=== PATIENT | male | born 1935 | race Hispanic/Latino ===

== ENCOUNTER 2018-02-19 12:58 | Inpatient (IN) | payer MEDICARE ==
[~2018-02-19 12:58] MED LIST: ISOVUE-370 76%-LOCM 1 ML ONE
[2018-02-19 13:39] LABS: #Lymphocytes 0.8 thou/uL (1.20-3.40); #Monocytes 1.3 thou/uL (0.11-0.59); #Neutrophils 10.6 thou/uL (1.40-6.50); %Eosinophils 0.3 % (0.0-10.0); %Lymphocytes 6.4 % (21.0-51.0); %Monocytes 10.3 % (0.0-10.0); %Neutrophils 82.9 % (42.0-75.0); Mean Corpuscular HGB CONC 30.8 g/dL (32.0-36.0); Mean Corpuscular Hemoglobin 25.2 pg (27.0-31.0); Mean Platelet Volume 6.5 fL (7.4-10.4); Platelet Count 429 thou/uL (130-400); RBC Distribution Width 15.4 % (11.5-14.5); Red Blood Cell (RBC) Count 4.75 mill/uL (4.70-6.10); White Blood Cell (WBC) Count 12.7 thou/uL (4.8-10.8)
[2018-02-19 14:03] LABS: ALT (SGPT) 15 U/L (8-55); AST (SGOT) 31 U/L (5-34); Albumin 5.2 g/dL (3.4-4.8); Alkaline Phosphatase 63 U/L (40-150); Anion Gap 16 mmol/L (10-20); BUN (Urea Nitrogen) 17 mg/dL (8.4-25.7); Bilirubin, Total 0.4 mg/dL (0.2-1.2); Calc. Creatinine Clearance 0 mL/min (70-130); Calcium 10.4 mg/dL (7.8-10.44); Carbon Dioxide 25 mmol/L (23-31); Chloride 103 mmol/L (98-107); Estimated GFR-MDRD 55; Globulin 3.3 g/dL (2.4-3.5); Glucose 115 mg/dL (83-110); Potassium 3.5 mmol/L (3.5-5.1); Protein, Total 8.5 g/dL (5.8-8.1); Sodium 140 mmol/L (136-145)
[2018-02-19 14:07] LABS: CKMB 5.8 ng/mL (0-6.6); Troponin I 0.121 ng/mL (< 0.028)
--- NOTE | 2018-02-19 15:36 | CT ---
CONTRAST ENHANCED CT IMAGES OF THE ABDOMEN AND PELVIS: History: Abdominal pain. 82-year-old with multiple complaints including seizure, fall, abdominal pain , and vomiting. Technique: Contrast enhanced CT images of the abdomen and pelvis demonstrates an intracardiac defibri llator. A prosthetic aortic valve is seen. Coronary artery calcifications are seen. FINDINGS: Some areas of scarring seen in the left lower lobe. The liver contains a small area of hypodensity seen in the hepatic segment #8. Further workup using s onography may be of use. The gallbladder has been surgically removed. The pancreas is unremarkable. Adrenal glands unremarkable. Right kidney contains some hypodense areas most compatible with cortical cysts. There is approximatel y 4 mm area of hyperdensity in the upper pole of the left kidney most compatible with a nonobstructin g left renal calculus. Atherosclerotic calcification seen in the abdominal aorta. The adrenal glands are unremarkable. No dilated loops of small bowel seen. Normal appendix is visualized. Some mild diffuse ascending, transverse, and descending colonic mucosal thickening is seen concerning for colitis. Extensive descending sigmoid colonic diverticulosis is also present. Mild urinary bladder thickening is seen. Some fat is seen in the right inguinal canal. No significant evidence of osseous lesions seen. Some mucosal thickening seen in the colon concerning for colitis. POS: [facility]
--- NOTE | 2018-02-19 15:37 | CT ---
CT OF HEAD NONCONTRAST: 02/19/18 CLINICAL HISTORY: Seizure activity with recent fall. No prior comparison imaging. FINDINGS: There is a moderate sized region of left cerebral hemispheric encephalomalacia which is centered abou t the anterior pole left temporal lobe with associated ex vacuo dilatation of the left temporal horn. There is an additional smaller region of encephalomalacia of the left frontal lobe involving cortex and white matter. Subcortical hypodensities are present at each medial frontal lobe indicative of gli osis. There are hypodensities of the left cerebellar hemisphere indicating lacunar infarctions. Chron ic ischemic disease is also seen within the cerebral white matter. There is no intracranial hemorrhag e, mass effect or midline shift. IMPRESSION: Multifocal encephalomalacia superimposed upon chronic microvascular ischemic disease. There is no acu te intracranial hemorrhage or mass effect. As necessary, brain MRI may be performed, in the absence of contraindications. POS: [facility]
[2018-02-19] MEDS ORDERED: Dicyclomine 20 MG TAB ONE (15:56)
[2018-02-19] MEDS ORDERED: metroNIDAZOLE 500 MG/100 ML BAG ONE (16:06)
[2018-02-19 18:07] LABS: Troponin I 0.139 ng/mL (< 0.028)
[2018-02-19] MEDS ORDERED: Ondansetron ODT 4 MG TAB SL PRN (19:43)
[2018-02-19] MEDS ORDERED: Acetaminophen 325 MG TAB PO PRN (19:43)
[2018-02-19] MEDS ORDERED: Ondansetron PF 4 MG/2 ML Vial IVP PRN (19:43)
[2018-02-19 20:26] VITALS: BMI 25.7
[2018-02-19] MEDS ORDERED: Lorazepam 2 MG/ML VIAL SLOW IVP PRN (21:04)
[2018-02-19] MEDS ORDERED: cloNIDine 0.1 MG TAB PO PRN (21:04)
[2018-02-19 21:12] LABS: Troponin I 0.145 ng/mL (< 0.028)
[2018-02-19 21:40] LABS: Bilirubin Negative (Negative); Blood, Urine Negative (Negative); Clarity CLEAR (Clear); Glucose, Urine (Dipstick) Negative (Negative); Leukocyte Small (Negative); Nitrite Negative (Negative); Protein, Urine (Dipstick) Negative (Neg-Trace); Urobilinogen 0.2 mg/dL (0.2-1.0)
[2018-02-19 21:42] LABS: Bacteria/HPF None Seen HPF (None Seen); Hyaline Casts/LPF 4-6 HYALINE CAST LPF (0-3 Hyaline); Pathc Cast-AUWi Flag 0.87 (0-2.49); RBC/HPF 0-3 HPF (0-3); Squamous Epithelial 0-3 HPF (0-3); WBC/HPF 21-50 HPF (0-3)
[2018-02-19 21:44] LABS: Specific Gravity, Urine Greater than 1.060 (1.002-1.036)
--- NOTE | 2018-02-20 02:14 | HP ---
PRIMARY CARE PHYSICIAN: Dr. Bill Hood. DATE OF ADMISSION: 02/19/2018 CHIEF COMPLAINT: Seizure and abdominal pain. HISTORY OF PRESENT ILLNESS: This is an 82-year-old gentleman patient of Dr. 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 He has been followed by Dr. White and saw him recently a few months ago with no change in his medications. He has periodic seizures, but usually well controlled. Following the seizure, the patient complained of abdominal pain and presented to emergency department for further evaluation. He appeared not to be in a postictal state except for some confusion which may be his baseline. He continues to complain of lower abdominal pain. He had a CT of the abdomen done in the emergency department which did reveal some diverticulosis but no acute findings. He was started on Cipro and Flagyl in the emergency department for a possible diverticulitis, even though there are no clinical signs of diverticulitis. A CT of the brain was done due to the seizures and possible head injury which showed no acute changes except for chronic microvascular ischemic disease and multifocal encephalomalacia. Upon workup due to his history of heart disease, cardiac enzymes were done and they were found to be more elevated than his usual at 0.121 and 0.139. The patient denies chest pain, denies shortness of breath, denies palpitations. He is now being admitted for further evaluation and treatment. PAST MEDICAL HISTORY: 1. Systolic congestive heart failure with cardiomyopathy, known coronary disease, status post 4-vessel coronary bypass graft with aortic valve replacement at that time due to his cardiomyopathy and decreased left ventricular ejection fraction. He has had an AICD placement in the past. He has been followed by Dr. Cesar. 2. History of seizure disorder controlled on medicines. 3. Chronic kidney disease stage 2. 4. Hypertension. 5. Osteoarthritis. 6. Peripheral neuropathy. MEDICATIONS: Include gabapentin 600 mg in the morning and 300 mg at bedtime, Epitol 200 mg daily, Keppra 1000 mg twice a day, fenofibrate 135 mg daily, carvedilol 6.25 mg twice a day, atorvastatin 80 mg daily, aspirin 81 mg daily, Entresto 49/51 one twice a day, pantoprazole 40 mg daily for history of gastritis, fluoxetine 40 mg daily. ALLERGIES: No known drug allergies. PAST SURGICAL HISTORY: Four-vessel coronary bypass graft, AICD placement, aortic valve replacement. EGD showing severe gastritis in 2016. FAMILY HISTORY: Father and mother unknown. SOCIAL HISTORY: No smoking, no drug use. He is retired. REVIEW OF SYSTEMS: As per the history of present illness. General: He denies any recent fevers, chills or recent illness. HEENT: Denies headache, visual or hearing changes. Cardiac: Denies chest pain, shortness of breath or palpitations. Pulmonary: Denies cough or hemoptysis. Gastrointestinal: Denies nausea and vomiting. Admits to some lower abdominal pain. Genitourinary : History of urinary tract infections in the past. Musculoskeletal: Positive joint pains, worse in the knees and hands. Neurologic: Positive seizures. No recent syncope. PHYSICAL EXAMINATION: VITAL SIGNS: Temperature 99.0, pulse of 97, respirations 16, blood pressure 172 /82, pulse ox is 96% on room air. GENERAL: He is awake and alert and no acute distress. He speaks some Armenian, mostly prefers Kyrgyz. Mucosa is moist. NECK: Supple. No JVD, adenopathy, bruits. HEART: Regular rate and rhythm with a 2/6 systolic ejection murmur. LUNGS: Clear anteriorly. He does have some basilar rales which are mild. ABDOMEN: Soft, some suprapubic tenderness. No rebound, no guarding, no peritoneal signs. EXTREMITIES: No clubbing, cyanosis or edema, 2+ peripheral pulses bilaterally. NEUROLOGIC: Cranial nerves II-XII are intact. Strength is 5/5 in upper and lower extremities. LABORATORY DATA: Sodium 140, potassium 3.5, chloride 103, CO2 of 25, BUN and creatinine 15 and 1.27 with a GFR of 55, glucose of 115. Lactic acid was 2.0, calcium of 10.4. AST and ALT are normal. Troponin I first one was 0.121 and second one was 0.139. White blood cell count 12.7, hemoglobin and hematocrit are 12 and 38.9 with mild microcytic indices, platelets 429. CT of the brain revealed no multifocal encephalomalacia with chronic microvascular ischemic disease. No acute hemorrhage. Abdominal pelvic CT revealed some colitis in the colon, mild urinary bladder thickening, and evidence of diverticulosis. EKG with ST depression in anterolateral leads. ASSESSMENT AND PLAN: This is an 82-year-old patient of Dr. Hood with a history of cardiomyopathy, coronary artery disease, and seizure disorder, now status post seizure, complaining of abdominal pain, and abnormal cardiac enzymes. 1. CAD with elevated in cardiac enzymes after seizure. I agree with admission to Telemetry. We will continue to rule out myocardial infarction protocol. I will consult Cardiology and check echocardiogram for possible non Q wave myocardial infarction. We will recheck EKG in the morning. 2. Seizure disorder. We will continue his medications from Dr. White. Start Ativan p.r.n. seizure and put him on seizure precautions. 3. Possible urinary tract infection. I will place a Fuller for his difficulty urination and check UA, urine culture. [facility]
[2018-02-20 07:15] LABS: ALT (SGPT) 11 U/L (8-55); AST (SGOT) 26 U/L (5-34); Alkaline Phosphatase 46 U/L (40-150); Anion Gap 10 mmol/L (10-20); BUN (Urea Nitrogen) 17 mg/dL (8.4-25.7); Bilirubin, Total 0.5 mg/dL (0.2-1.2); Calc. Creatinine Clearance 52 mL/min (70-130); Calcium 9.3 mg/dL (7.8-10.44); Carbon Dioxide 25 mmol/L (23-31); Chloride 107 mmol/L (98-107); Estimated GFR-MDRD 64; Globulin 2.3 g/dL (2.4-3.5); Glucose 101 mg/dL (83-110); Potassium 4.3 mmol/L (3.5-5.1); Protein, Total 6.3 g/dL (5.8-8.1); Sodium 138 mmol/L (136-145)
--- NOTE | 2018-02-20 08:01 | PRG ---
DATE OF SERVICE: 02/20/2018 SUBJECTIVE: Mr. Christiano Patel is awake and alert. He denies any chest pain. He did notice some lo wer abdominal pain pointing toward his bladder. PHYSICAL EXAMINATION: VITAL SIGNS: Temperature 98.3, blood pressure 140/71. LUNGS: Clear. HEART: Reveals no murmur. ABDOMEN: Soft, nontender, bowel sounds present and reactive. LABORATORY DATA AND IMAGING: There was a mild elevation of his troponin at 0.145. Urinalysis does r eveal 21-50 WBCs per high power field. Abdominal and pelvic CT scan was normal. Brain CT is unchang ed from previous CTs. IMPRESSION: 1. An 82-year-old male who suffered from seizure. He has a history of recurrent seizure disorder. 2. Elevated troponins of unknown significance, previous history of cardiomyopathy. PLAN: Patient currently has a Fuller. We will discontinue the Fuller. We will place him on some oral antibiotics for presumed UTI. We will await Cardiology recommendations.
[2018-02-20 08:51] LABS: Band 2 % (5-11); Eosinophils 3 % (0-10); Hemoglobin 9.9 g/dL (14.0-18.0); Lymphocytes 23 % (21-51); MDiff Complete? YES; Mean Corpuscular HGB CONC 31.4 g/dL (32.0-36.0); Mean Corpuscular Hemoglobin 25.7 pg (27.0-31.0); Mean Corpuscular Volume 81.9 fL (78.0-98.0); Mean Platelet Volume 6.7 fL (7.4-10.4); Monocytes 20 % (0-10); Neutrophil 52 % (42-75); Platelet Count 351 thou/uL (130-400); Polychromasia SLIGHT = 2-3 cells (100X) (0-2/hpf); RBC Distribution Width 15.4 % (11.5-14.5); Red Blood Cell (RBC) Count 3.86 mill/uL (4.70-6.10); White Blood Cell (WBC) Count 7.4 thou/uL (4.8-10.8)
[2018-02-20] MEDS ORDERED: Non-Formulary Item 1 EACH (Fenofibric Acid (Choline) [Fenofibric Acid] 135 MG) PO SCH (09:00)
[2018-02-20] MEDS: Carvedilol 6.25 MG TAB PO SCH ×2 (10:41→20:43)
[2018-02-20] MEDS: Atorvastatin Calcium 40 MG TAB PO SCH (10:41)
[2018-02-20] MEDS: carBAMazepine 200 MG TAB PO SCH (10:41)
[2018-02-20] MEDS: Gabapentin 300 MG CAP PO SCH (10:42)
[2018-02-20] MEDS: levETIRAcetam 500 MG TAB PO SCH ×2 (10:42→20:44)
[2018-02-20] MEDS: Fenofibrate Nanocrystallized 145 MG TAB PO SCH (10:42)
[2018-02-20] MEDS: FLUoxetine HCl 20 MG CAP PO SCH (10:42)
[2018-02-20] MEDS: Sacubitril 49 MG/Valsartan 51 MG TABLET PO SCH ×2 (10:47→20:45)
--- NOTE | 2018-02-20 12:11 | CON ---
DATE OF CONSULTATION: 02/20/2018 HISTORY OF PRESENT ILLNESS: The patient is a pleasant 82-year-old gentleman, who presented with abdominal discomfort and a seizure and was noted to have an elevated troponin level. The patient has a long history of coronary artery disease. In 2010, he underwent a cardiac catheterization. He was found to have mild decreased left ventricular ejection fraction 40% to 45% with severe coronary artery disease. The patient subsequently underwent coronary artery bypass graft surgery and aortic valve replacement. He had a THOMPSON placed to the LAD, saphenous vein graft to the PDA, posterior left ventricular branch, and a diagonal branch. The patient has subsequently been on medical therapy. He has developed a progressive cardiomyopathy and has had placement of automatic implantable cardiac defibrillator. The patient was in his usual state of health when he apparently had a seizure. The patient reports having abdominal discomfort. He was admitted for further evaluation. The patient denied having any chest discomfort. The patient denies any dyspnea on exertion, PND, or orthopnea. PAST MEDICAL HISTORY: 1. Coronary artery disease. 2. Cardiomyopathy. 3. Hypertension. 4. Aortic valve replacement. 5. Renal insufficiency. 6. Seizure disorder. PAST SURGICAL HISTORY: Coronary artery bypass surgery and aortic valve replacement. SOCIAL HISTORY: Nonsmoker. MEDICATIONS: See nursing list. FAMILY HISTORY: No strong family history of heart disease. ALLERGIES: No known drug allergies. MEDICATIONS: Aspirin 81 daily, Lipitor 40 at bedtime, Coreg 6.25 b.i.d., Prozac 20 daily, Protonix 40 daily, Epitol 200 daily, TriCor 135 daily, gabapentin 300 at bedtime, and Protonix 40 daily. REVIEW OF SYSTEMS: Ten-point system noticeable for difficulty with urination. Otherwise, unremarkable. PHYSICAL EXAMINATION: GENERAL: a well-developed gentleman in no acute distress. VITAL SIGNS: Blood pressure was 180/75. NECK: Showed no jugular venous distention. LUNGS: Clear to auscultation. HEART: Regular rate and rhythm. Normal S1 and S2 with a 1/6 systolic murmur. ABDOMEN: Nondistended. EXTREMITIES: Show no edema. Radial pulses are 2+. LABORATORY DATA: Sodium 138, potassium 4.3, chloride 107, bicarbonate 25, BUN 17, creatinine is 1.11, troponin 0.0145. White blood cell count 7.4, hemoglobin 9.9, hematocrit 31.6, platelets are 351. His EKG reveals him to have normal sinus rhythm with left ventricular hypertrophy, ST-T-wave abnormality suggestive of a repolarization abnormality or ischemia. IMPRESSION: 1. Seizures. 2. Urinary retention/urinary tract infection. 3. History of coronary artery bypass surgery. 4. History of aortic valve replacement. 5. Ischemic cardiomyopathy. 6. History of automatic implantable cardioverter-defibrillator placement. This gentleman presents with a seizure and urinary tract infection. The patient has indeterminate troponin level. From a cardiac standpoint, the patient is asymptomatic. We will follow this patient with you through this hospitalization. NATALIE
[2018-02-20] MEDS: Ciprofloxacin 500 MG TAB PO SCH (20:43)
[2018-02-20] MEDS ORDERED: Gabapentin 300 MG CAP PO SCH (21:00)
[2018-02-21] MEDS: Ciprofloxacin 500 MG TAB PO SCH (05:49)
--- NOTE | 2018-02-21 07:47 | PRG ---
DATE OF SERVICE: 02/21/2018 SUBJECTIVE: Mr. Patel is feeling well. He has no further chest pain, shortness of breath. No seiz ures. He has been able to walk, bear weight. Urinating okay. PHYSICAL EXAMINATION: VITAL SIGNS: His temperature is 98.4, blood pressure 120/61. LUNGS: Clear. HEART: Reveals no murmur. IMPRESSION: 1. Seizure disorder, stable at this time. 2. Chest pain with elevated troponins, now stable at this time. 3. Urinary tract infection. PLAN: Will be discharged home today. Follow up me in approximately 1 week.
--- NOTE | 2018-02-21 07:57 | DIS ---
ADMITTING PHYSICIAN: Dr. Bill Hood CONSULTING PHYSICIAN: Dr. Cesar [facility] SUMMARY: The patient is an 82-year-old male with known history of previous traumat ic brain injury. He suffers from seizure disorder, as well as cardiomyopathy. He has an implanted i nternal defibrillator. He was brought to the hospital after having chest pain after a seizure. He w as seen and evaluated in the emergency room. All workup there was negative, although he did have sarah e elevated troponins. He subsequently was admitted to the hospital. Cardiology consult was obtained . Dr. Cesar saw the patient, did not feel like he was having any type of acute coronary syndrome. He was found to have a urinary tract infection while in the hospital and he was placed on Cipro 500 mg p.o. b.i.d., which he has been tolerating well. By the second hospital day, he was doing well. He was able to be discharged home on Cipro 500 mg p.o. b.i.d. Additionally, taking gabapentin 300 mg daily, fenofibric acid 135 mg daily, carbamazepine 20 mg daily, and Protonix to 40 mg daily, levocet irizine 500 mg b.i.d., fluoxetine 20 mg daily, carvedilol 6.25 mg b.i.d., atorvastatin 40 mg daily, a spirin 81 mg daily. He will be seen in followup with me in approximately 1 week after discharge.
[2018-02-21] MEDS: Atorvastatin Calcium 40 MG TAB PO SCH (09:10)
[2018-02-21] MEDS: Gabapentin 300 MG CAP PO SCH (09:11)
[2018-02-21] MEDS: Fenofibrate Nanocrystallized 145 MG TAB PO SCH (09:11)
[2018-02-21] MEDS: levETIRAcetam 500 MG TAB PO SCH (09:12)
[2018-02-21] MEDS: Carvedilol 6.25 MG TAB PO SCH (09:12)
[2018-02-21] MEDS: carBAMazepine 200 MG TAB PO SCH (09:12)
[2018-02-21] MEDS: FLUoxetine HCl 20 MG CAP PO SCH (09:14)
[2018-02-21] MEDS: Sacubitril 49 MG/Valsartan 51 MG TABLET PO SCH (09:17)
[2018-02-21 16:47] VITALS: BP 114/57; TEMP 98
--- NOTE | 2018-02-23 12:17 | EKG ---
Test Reason : Blood Pressure : / mmHG Vent. Rate : 097 BPM Atrial Rate : 097 BPM P-R Int : 154 ms QRS Dur : 120 ms QT Int : 408 ms P-R-T Axes : 031 -04 111 degrees QTc Int : 518 ms Normal sinus rhythm Left ventricular hypertrophy with QRS widening Abnormal ECG Confirmed by ALEXSANDRA MORALES ([id number]), editor book VENECIA BHAKTA ([id number]) on 02/23/2018 12:16:42 PM Referred By: Confirmed By:ALEXSANDRA MORALES
== END 2018-02-21 13:45 | disposition home or self-care (01) | DRG 101 ==
LOC: ERS 12:58 → 2NO 19:31
PROVIDERS: ADMIT Family Medicine; ATTEND Family Medicine
DX: G40.909 Epilepsy, unspecified, not intractable, without status epilepticus (principal); I13.0 Hypertensive heart and chronic kidney disease with heart failure and stage 1 through stage 4 chronic kidney disease, or unspecified chronic kidney disease; I50.22 Chronic systolic (congestive) heart failure; N39.0 Urinary tract infection, site not specified; R07.89 Other chest pain; Z87.820 Personal history of traumatic brain injury; N18.2 Chronic kidney disease, stage 2 (mild); Z95.810 Presence of automatic (implantable) cardiac defibrillator; M19.91 Primary osteoarthritis, unspecified site; I73.9 Peripheral vascular disease, unspecified; Z95.1 Presence of aortocoronary bypass graft; Z79.01 Long term (current) use of anticoagulants; Z95.2 Presence of prosthetic heart valve; I25.10 Atherosclerotic heart disease of native coronary artery without angina pectoris; Z79.82 Long term (current) use of aspirin; I25.5 Ischemic cardiomyopathy
CPT/HCPCS: 36415; 70450; 74177; 80053; 81003; 81015; 82553; 83605; 84484; 85025; 87040; 87086; 93005; 93010; 93306; 96361; 96365; 96367; J0744; J2405

== ENCOUNTER 2018-03-06 01:10 | Emergency (ER) | payer MEDICARE, OTHER ==
[2018-03-06 02:42] LABS: Bilirubin Negative (Negative); Blood, Urine Negative (Negative); Clarity CLEAR (Clear); Glucose, Urine (Dipstick) Negative (Negative); Leukocyte Moderate (Negative); Nitrite Negative (Negative); Protein, Urine (Dipstick) Negative (Neg-Trace); Specific Gravity, Urine 1.011 (1.002-1.036); Urobilinogen 0.2 mg/dL (0.2-1.0); pH, Urine 6.5 (5.0-9.0)
[2018-03-06 02:45] LABS: Bacteria/HPF None Seen HPF (None Seen); Hyaline Casts/LPF 0-3 HYALINE CAST LPF (0-3 Hyaline); Pathc Cast-AUWi Flag 0.29 (0-2.49); RBC/HPF 0-3 HPF (0-3); Squamous Epithelial 0-3 HPF (0-3)
[2018-03-06 03:24] LABS: #Eosinphils 0.2 thou/uL (0.0-0.7); #Lymphocytes 1.2 thou/uL (1.20-3.40); #Monocytes 0.8 thou/uL (0.11-0.59); #Neutrophils 3.4 thou/uL (1.40-6.50); %Basophils 0.7 % (0.0-1.0); %Eosinophils 3.4 % (0.0-10.0); %Lymphocytes 20.9 % (21.0-51.0); %Monocytes 14.5 % (0.0-10.0); %Neutrophils 60.5 % (42.0-75.0); Hemoglobin 9.4 g/dL (14.0-18.0); Mean Corpuscular Hemoglobin 26.1 pg (27.0-31.0); Mean Corpuscular Volume 84.2 fL (78.0-98.0); Mean Platelet Volume 6.5 fL (7.4-10.4); Platelet Count 409 thou/uL (130-400); RBC Distribution Width 15.8 % (11.5-14.5); Red Blood Cell (RBC) Count 3.62 mill/uL (4.70-6.10); White Blood Cell (WBC) Count 5.5 thou/uL (4.8-10.8)
[2018-03-06 03:43] LABS: ALT (SGPT) 11 U/L (8-55); AST (SGOT) 20 U/L (5-34); Albumin 3.9 g/dL (3.4-4.8); Alkaline Phosphatase 41 U/L (40-150); Anion Gap 12 mmol/L (10-20); BUN (Urea Nitrogen) 19 mg/dL (8.4-25.7); Bilirubin, Total 0.3 mg/dL (0.2-1.2); Calc. Creatinine Clearance 0 mL/min (70-130); Carbon Dioxide 27 mmol/L (23-31); Chloride 106 mmol/L (98-107); Estimated GFR-MDRD 46; Globulin 2.3 g/dL (2.4-3.5); Glucose 104 mg/dL (83-110); Potassium 4.1 mmol/L (3.5-5.1); Protein, Total 6.2 g/dL (5.8-8.1); Sodium 141 mmol/L (136-145)
--- NOTE | 2018-03-06 08:38 | RAD ---
CHEST ONE VIEW ABDOMEN TWO VIEWS: History: Lower abdominal pain and constipation. FINDINGS/IMPRESSION: There are post op changes of cholecystectomy. No free air or differential fluid levels are seen. Ther e is fecal material in the colon. Degenerative changes are seen in the spine. There are post op changes of median sternotomy. The heart size is normal. A left sided AICD is presen t. No lobar consolidation, pneumothoraces or pleural effusions are identified. POS: [facility]
== END 2018-03-06 04:00 | disposition home or self-care (01) ==
LOC: ERS 01:10
DX: K59.00 Constipation, unspecified (principal); E78.5 Hyperlipidemia, unspecified; F31.9 Bipolar disorder, unspecified; I10 Essential (primary) hypertension; Z87.442 Personal history of urinary calculi; Z79.82 Long term (current) use of aspirin; Z79.899 Other long term (current) drug therapy
CPT/HCPCS: 36415; 74022; 80053; 81003; 81015; 85025

== ENCOUNTER 2019-01-06 11:20 | Outpatient (CLI) | payer MEDICARE ==
[2019-01-06 12:20] LABS: Prothrombin Time 13.6 SEC (12.0-14.7)
[2019-01-06 12:23] LABS: Anion Gap 14 mmol/L (10-20); BUN (Urea Nitrogen) 20 mg/dL (8.4-25.7); Calc. Creatinine Clearance 0 mL/min (70-130); Calcium 9.2 mg/dL (7.8-10.44); Carbon Dioxide 24 mmol/L (23-31); Chloride 107 mmol/L (98-107); Estimated GFR-MDRD 48; Glucose 99 mg/dL (83-110); Potassium 4.3 mmol/L (3.5-5.1); Sodium 141 mmol/L (136-145)
[2019-01-06 12:25] LABS: Eosinophils 2 % (0-10); Hemoglobin 12.5 g/dL (14.0-18.0); Lymphocytes 28 % (21-51); MDiff Complete? YES; Mean Corpuscular HGB CONC 30.6 g/dL (32.0-36.0); Mean Corpuscular Hemoglobin 26.6 pg (27.0-31.0); Mean Corpuscular Volume 86.9 fL (78.0-98.0); Mean Platelet Volume 7.5 fL (7.4-10.4); Monocytes 11 % (0-10); Neutrophil 59 % (42-75); Platelet Count 245 thou/uL (130-400); Platelet Morphology Comment Appears Adequate; Polychromasia SLIGHT = 2-3 cells (100X) (0-2/hpf); RBC Distribution Width 20.4 % (11.5-14.5); White Blood Cell (WBC) Count 5.3 thou/uL (4.8-10.8)
--- NOTE | 2019-01-06 15:26 | EKG ---
Test Reason : Blood Pressure : / mmHG Vent. Rate : 080 BPM Atrial Rate : 079 BPM P-R Int : 154 ms QRS Dur : 122 ms QT Int : 416 ms P-R-T Axes : 031 026 219 degrees QTc Int : 479 ms Electronic atrial pacemaker Left ventricular hypertrophy with QRS widening and repolarization abnormality Abnormal ECG When compared with ECG of 20-FEB-2018 07:49, Electronic atrial pacemaker has replaced Sinus rhythm T wave inversion more evident in Inferior leads Confirmed by DR. Daryl YANG ([id number]) on 01/06/2019 3:25:45 PM Referred By: IERO Confirmed By:DR. Daryl YANG
== END 2019-01-06 11:21 | disposition home or self-care (01) ==
LOC: LABBT 11:20
PROVIDERS: ATTEND Orthopaedic Surgery
DX: Z01.818 Encounter for other preprocedural examination (principal); M17.12 Unilateral primary osteoarthritis, left knee
CPT/HCPCS: 80048; 85025; 85610; 87081; 93005; 93010

== ENCOUNTER 2019-01-09 09:52 | Outpatient (CLI) | payer MEDICARE ==
[2019-01-09 11:57] LABS: Bilirubin Negative (Negative); Blood, Urine Negative (Negative); Clarity Clear (Clear); Glucose, Urine (Dipstick) Normal (Negative); Leukocyte 25 Leu/uL (Negative); Nitrite Negative (Negative); Protein, Urine (Dipstick) 20 mg/dL (Neg-Trace); RBC/HPF 0-3 HPF (0-3); Urobilinogen Normal mg/dL (Less than 2)
[2019-01-09 11:58] LABS: Bacteria/HPF None Seen HPF (None Seen); Squamous Epithelial None Seen HPF (0-3); WBC/HPF 0-3 HPF (0-3)
== END 2019-01-09 09:53 | disposition home or self-care (01) ==
LOC: LABBT 09:52
PROVIDERS: ATTEND Orthopaedic Surgery
DX: Z01.812 Encounter for preprocedural laboratory examination (principal); M17.12 Unilateral primary osteoarthritis, left knee
CPT/HCPCS: 81001

== ENCOUNTER 2019-01-13 06:54 | Inpatient (IN) | payer MEDICARE ==
[2019-01-06 11:30] VITALS: BMI 26.6
[2019-01-13] MEDS ORDERED: Sodium Chloride 0.9% 100 ML ONE (08:18)
[2019-01-13] MEDS ORDERED: Tranexamic Acid 1,000 MG/10 ML VIAL ONE ×2 (08:18→11:48)
[2019-01-13] MEDS ORDERED: Bupivacaine PF 0.5% 30 ML VIAL ONE (08:28)
[2019-01-13] MEDS ORDERED: Midazolam HCl 2 mg/2 ml Vial ONE (08:31)
[2019-01-13] MEDS ORDERED: Fentanyl 100 MCG/2 ML VIAL ONE ×2 (08:31→09:26)
[2019-01-13] MEDS ORDERED: Lidocaine 1% (PF) 30 ML VIAL ONE (08:32)
[2019-01-13] MEDS ORDERED: Promethazine HCl 25 MG/ML VIAL IM PRN ×4 (10:06→13:43)
[2019-01-13] MEDS ORDERED: Ondansetron HCl/PF 4 MG/2 ML Vial IVP PRN (10:06)
[2019-01-13] MEDS ORDERED: Promethazine HCl 25 MG/ML VIAL SLOW IVP PRN (10:06)
[2019-01-13] MEDS ORDERED: Ondansetron PF 4 MG/2 ML Vial IVP PRN ×3 (11:29→13:43)
[2019-01-13] MEDS ORDERED: Fentanyl 100 MCG/2 ML VIAL SLOW IVP PRN (11:29)
[2019-01-13] MEDS ORDERED: diphenhydrAMINE 25 MG CAP PO PRN (11:29)
[2019-01-13] MEDS ORDERED: Acetaminophen 325 MG TAB PO PRN (11:29)
[2019-01-13] MEDS ORDERED: traMADol HCl 50 MG TAB PO PRN ×5 (11:29→13:43)
[2019-01-13] MEDS ORDERED: HYDROcodone/Acetaminophen 10/325 mg Tablet PO PRN ×5 (11:29→13:43)
[2019-01-13] MEDS ORDERED: Zolpidem Tartrate 5 MG TAB PO PRN ×3 (11:29→13:43)
[2019-01-13] MEDS ORDERED: Vancomycin HCl 1 GM in Premix Bag 1 BAG IVPB SCH (11:30)
[2019-01-13] MEDS ORDERED: Tranexamic Acid 1,000 MG in Sodium Chloride 0.9% 100 ML IVPB SCH (11:30)
[2019-01-13] MEDS ORDERED: Ropivacaine HCl/PF 250 ML in Premix Bag 1 BAG NERVE BLCK SCH ×2 (12:11→13:43)
[2019-01-13] MEDS ORDERED: Fentanyl 100 MCG/2 ML VIAL IV PRN ×2 (12:13→13:44)
[2019-01-13] MEDS ORDERED: Acetaminophen 500 MG TAB PO PRN ×2 (12:14→13:51)
--- NOTE | 2019-01-13 12:32 | OP ---
DATE OF PROCEDURE: 01/13/2019 FOOD EXPEDITOR: Jah Scherer PA-C PREOPERATIVE DIAGNOSIS: Left knee osteoarthrosis with varus deformity. POSTOPERATIVE DIAGNOSIS: Left knee osteoarthrosis with varus deformity. PROCEDURE PERFORMED: Left total knee replacement using Jesus Manuel pinless navigation. ESTIMATED BLOOD LOSS: Minimal. COMPLICATIONS: None. ANESTHESIA: He had a general anesthetic. He also had a preoperative block. IMPLANTS: To the left knee is a [place] [employer] total knee system, the femur was size 4 cruciate retaining femur. We used a size 3 primary tibial baseplate, 3 x 9 mm CS X3 tibial bearing and an asymmetric 29 x 9 X3 patella. DISPOSITION: He did go to recovery room in stable condition. INDICATIONS: This is an 83-year-old male, who has had left knee arthritis for years and at this time, he got to the point where he can barely get around and he wished to have his knee replaced. PROCEDURE IN DETAIL: After all appropriate consent forms were explained and signed, the patient was taken back to the operating room and at this time was given general anesthetic. Once the level of anesthesia was appropriate, a well-padded tourniquet was placed on the left leg, and the leg was then prepped and draped in standard surgical fashion. The limb was exsanguinated and tourniquet taken up to 300 mmHg. Midline incision was made with a 10 blade down through the skin and subcutaneous tissue. Bovie electrocautery was used to coagulate any brisk venous bleeding. A new blade was used to make a medial parapatellar arthrotomy. Small subperiosteal release was performed medially and excess fat pad was removed. The knee was flexed up to gain access to the femur. The femur was navigated and distal femoral resection was made. Epicondylar access was used to align our sizing jig and this was pinned in place. We sized our femur to be a size 4 cruciate retaining femur. 4:1 cutting block was applied and pinned. Anterior and posterior chamfer cuts were then made. We navigated out our proximal tibia and made our proximal tibial resection. Spreaders were used to remove any posterior osteophytes off the back of the femur as well as remaining meniscal tissue. A long alignment kavin was then used to achieve correct rotation of our tibial baseplate and a size 3 primary tibial baseplate was chosen. This was pinned in place. We trialed the polyethylene and a 3 x 9 mm CS X3 tibial bearing polyethylene gave us full extension and good stability throughout range of motion. Two towel clips and a saw were used to cut our patella. Three lug nuts were drilled and an asymmetric 29 x 9 X3 patella was trialed which sat nicely in the trochlear groove. We then drilled our femur and punched our tibia. All components were removed. The knee was thoroughly irrigated and dried. Cement was mixed into the cement gun on the back table. Components were then placed. The knee was held out in full extension until the cement had dried. All excess bone cement was removed. Multiple #2 Vicryl stitches as well as a Quill were used to close our extensor mechanism. 0 Quill followed by a running Monoderm was then used to close the skin. Surgicel glue was then used on the skin. Once this had dried, soft tissue dressing was applied to the limb, tourniquet was let down , and the toes pinked up nicely. The patient was then awakened and taken to the recovery room in stable condition. All counts were correct at the end of the case. The patient did receive preoperative IV antibiotics. The patient was injected with Marcaine for postoperative pain relief. Job ID: [id number] [facility]
[2019-01-13] MEDS ORDERED: Acetaminophen 1,000 MG in Premix Bag 1 BAG IVPB SCH (12:45)
[2019-01-13] MEDS ORDERED: Ketorolac Tromethamine 30 MG/ML VIAL IVP SCH (14:00)
[2019-01-13] MEDS: Sodium Chloride 0.9% 1,000 ML IV SCH (16:17)
[2019-01-13] MEDS: Ketorolac Tromethamine 30 MG/ML VIAL IVP SCH ×2 (16:19→22:13)
[2019-01-13] MEDS: CEFAZOLIN 2 GM in Premix Bag 1 BAG IVPB SCH ×2 (16:20→23:55)
[2019-01-13] MEDS ORDERED: Ropivacaine 0.5% HCl/PF (150 MG/30 ML VIAL) ONE (16:36)
[2019-01-13] MEDS ORDERED: Ropivacaine 0.2% HCl/PF (40 MG/20 ML VIAL) ONE (16:36)
[2019-01-13] MEDS ORDERED: Ondansetron PF 4 MG/2 ML Vial ONE (16:44)
[2019-01-13] MEDS ORDERED: PHENYLEPHRINE-NS 100 MCG/ML 10 ML SYRINGE ONE (16:44)
[2019-01-13] MEDS ORDERED: Lidocaine 1% PF 5 ML VIAL ONE (16:44)
[2019-01-13] MEDS ORDERED: PROPOFOL 200 MG/20 ML VIAL ONE (16:44)
[2019-01-13] MEDS ORDERED: Non-Formulary Item 1 EACH (Icosapent Ethyl [Vascepa] 1 GM) PO SCH (21:00)
[2019-01-13] MEDS: Aspirin 81 mg Enteric Coated Tablet PO SCH (22:11)
[2019-01-13] MEDS: levETIRAcetam 500 MG TAB PO SCH (22:11)
[2019-01-13] MEDS: Senokot S 8.6-50 MG TAB PO SCH (22:12)
[2019-01-13] MEDS: Ferrous Gluconate 324 MG TAB PO SCH (22:12)
[2019-01-13] MEDS: Atorvastatin Calcium 40 MG TAB PO SCH (22:12)
[2019-01-13] MEDS: Gabapentin 300 MG CAP PO SCH (22:13)
[2019-01-13] MEDS: Ramipril 5 MG CAP PO SCH (22:15)
[2019-01-13] MEDS: Carvedilol 6.25 MG TAB PO SCH (22:15)
[2019-01-14 04:25] LABS: Hemoglobin 10.4 g/dL (14.0-18.0); Mean Corpuscular HGB CONC 31.5 g/dL (32.0-36.0); Mean Corpuscular Hemoglobin 27.3 pg (27.0-31.0); Mean Corpuscular Volume 86.6 fL (78.0-98.0); Mean Platelet Volume 8.2 fL (7.4-10.4); Platelet Count 147 thou/uL (130-400); RBC Distribution Width 19.7 % (11.5-14.5); Red Blood Cell (RBC) Count 3.82 mill/uL (4.70-6.10); White Blood Cell (WBC) Count 8.7 thou/uL (4.8-10.8)
[2019-01-14] MEDS: Ketorolac Tromethamine 30 MG/ML VIAL IVP SCH ×3 (05:19→21:40)
[2019-01-14] MEDS: Sodium Chloride 0.9% 1,000 ML IV SCH ×3 (06:37→15:21)
[2019-01-14] MEDS: Aspirin 81 mg Enteric Coated Tablet PO SCH ×2 (08:22→20:15)
[2019-01-14] MEDS: Multivitamin W/ Minerals 1 TAB PO SCH (08:23)
[2019-01-14] MEDS: Ferrous Gluconate 324 MG TAB PO SCH ×2 (08:23→20:08)
[2019-01-14] MEDS: Ramipril 5 MG CAP PO SCH ×2 (08:23→20:06)
[2019-01-14] MEDS: CeleCOXIB 100 MG CAP PO SCH (08:23)
[2019-01-14] MEDS: levETIRAcetam 500 MG TAB PO SCH ×2 (08:24→20:07)
[2019-01-14] MEDS: Senokot S 8.6-50 MG TAB PO SCH ×2 (08:24→20:09)
[2019-01-14] MEDS: Gabapentin 300 MG CAP PO SCH ×2 (08:25→20:07)
[2019-01-14] MEDS: FLUoxetine HCl 20 MG CAP PO SCH (08:25)
[2019-01-14] MEDS: Ferrous Sulfate 325 MG TAB PO SCH (08:25)
[2019-01-14] MEDS: Carvedilol 6.25 MG TAB PO SCH ×2 (08:25→20:07)
[2019-01-14] MEDS: carBAMazepine 200 MG TAB PO SCH (08:25)
--- NOTE | 2019-01-14 13:11 | PRG ---
DATE OF SERVICE: 01/14/2019 SUBJECTIVE: An 83-year-old male with no previous history of traumatic brain injury, history of cardiomyopathy with ICD, pacemaker placement, history of atherosclerotic coronary artery disease, history of seizure disorder, history of osteoarthritis, status post left total knee replacement. He has undergone knee surgery. He is doing well postoperatively. He has no medical complaints. He has had postoperative dizziness yesterday when he tried to walk. Otherwise, he is doing well. He reports no chest pain, no shortness of breath. OBJECTIVE: VITAL SIGNS: Temperature 97.8, blood pressure 167/75, O2 saturations 98% on room air, respirations 16, and pulse 80 and regular. GENERAL: He is alert, active, in no acute distress. HEENT: Normocephalic, atraumatic. Sclerae and conjunctivae clear. Throat clear. NECK: Supple. Full range of motion. No masses. LUNGS: Clear. HEART: Reveals a regular rate and rhythm. No murmurs, gallops, or rubs. EXTREMITIES: No clubbing, edema, or cyanosis noted at this time. NEUROLOGICAL: He is alert and oriented x3. Responds to all questions. Moves all extremities according to command. LABORATORY DATA: Postoperative hemoglobin is 10.4, hematocrit 33.1. IMPRESSION: 1. Status post left total knee replacement. 2. History of cardiomyopathy. 3. History of atherosclerotic coronary artery disease. 4. History of seizure disorder. 5. History of previous traumatic brain injury. PLAN: Continue all home medications, which have been continued at this time. We will follow along with you. I do highly recommend that he be considered for a rehab placement. Job ID: [id number]
--- NOTE | 2019-01-14 14:39 | PRG ---
DATE OF SERVICE: 01/14/2019 SUBJECTIVE: Nick is an 83-year-old male, who is postop day 1 from a left total knee arthroplasty. He is doing relatively well. He was able to ambulate 40 to 50 feet yesterday evening postop surgery. He has no complaints. He is comfortable this morning. OBJECTIVE: VITAL SIGNS: Temperature 97.8, pulse 80, blood pressure is 159/73, respiratory rate 16, and nonlabored, O2 saturation is on 2 L nasal cannula. GENERAL: He is alert and oriented, responsive, and appropriate with examiner. EXTREMITIES: His incision is clean. No erythema. No strikethrough. NEUROVASCULAR: He is neurovascularly intact in left lower extremity. LABORATORY DATA: Hemoglobin and hematocrit 10.4 and 33.1. IMPRESSION: An 83-year-old male postoperative day 1 left total knee arthroplasty, doing well. PLAN: Continue current care. Probable discharge home tomorrow. Job ID: [id number]
[2019-01-14] MEDS: Atorvastatin Calcium 40 MG TAB PO SCH (20:07)
[2019-01-15] MEDS: Ketorolac Tromethamine 30 MG/ML VIAL IVP SCH ×3 (05:12→22:12)
[2019-01-15] MEDS: HYDROcodone/Acetaminophen 10/325 mg Tablet PO PRN ×2 (05:13→15:26)
[2019-01-15] MEDS: Sodium Chloride 0.9% 1,000 ML IV SCH ×2 (05:31→15:47)
[2019-01-15 05:32] LABS: Hemoglobin 9.2 g/dL (14.0-18.0); Mean Corpuscular Hemoglobin 28.2 pg (27.0-31.0); Mean Corpuscular Volume 88.1 fL (78.0-98.0); Mean Platelet Volume 8.6 fL (7.4-10.4); Platelet Count 131 thou/uL (130-400); RBC Distribution Width 19.9 % (11.5-14.5); Red Blood Cell (RBC) Count 3.25 mill/uL (4.70-6.10); White Blood Cell (WBC) Count 13.5 thou/uL (4.8-10.8)
[2019-01-15] MEDS: CeleCOXIB 100 MG CAP PO SCH ×2 (09:55→10:25)
[2019-01-15] MEDS: FLUoxetine HCl 20 MG CAP PO SCH (09:56)
[2019-01-15] MEDS: levETIRAcetam 500 MG TAB PO SCH ×2 (09:56→22:10)
[2019-01-15] MEDS: Multivitamin W/ Minerals 1 TAB PO SCH (09:56)
[2019-01-15] MEDS: Gabapentin 300 MG CAP PO SCH ×2 (09:57→22:09)
[2019-01-15] MEDS: Ramipril 5 MG CAP PO SCH ×4 (09:57→22:08)
[2019-01-15] MEDS: Carvedilol 6.25 MG TAB PO SCH ×4 (09:59→22:10)
[2019-01-15] MEDS: Aspirin 81 mg Enteric Coated Tablet PO SCH ×2 (09:59→22:10)
[2019-01-15] MEDS: Ferrous Gluconate 324 MG TAB PO SCH ×2 (09:59→22:09)
[2019-01-15] MEDS: Senokot S 8.6-50 MG TAB PO SCH ×3 (09:59→22:12)
[2019-01-15] MEDS: carBAMazepine 200 MG TAB PO SCH (09:59)
--- NOTE | 2019-01-15 09:59 | PRG ---
DATE OF SERVICE: 01/15/2019 SUBJECTIVE: Nick is an 83-year-old male, who is postop day 2 from left total knee arthroplasty. Brief chart review demonstrates that his ambulatory effort declined slightly yesterday evening. He nearly ambulated 30 feet in the afternoon. Further inquiry with the patient's brother yields that the patient has had a little bit of a mental deficit since an injury while working some years ago. He has had difficulty hearing, visual impairment, and also mentation. His brother is his primary emergency services dispatcher. OBJECTIVE: VITAL SIGNS: Temperature is 98.6, pulse 82, respiratory rate 16, blood pressure is 168/74. GENERAL: He is alert and responsive with examiner, but difficult to converse with due to translational issues with his brother. LABORATORIES: Hemoglobin and hematocrit 9.2 and 28.6. IMPRESSION: An 83-year-old male with a postop day 1 left total knee arthroplasty with decline in physical function and with a chronic history of diminished mentation. Currently, I believe he is stable, but he is elderly and brittle. PLAN: I believe skilled placement would be in his best interest. We will go ahead and consult the Case Management for arranging this. Recheck tomorrow. Job ID: [id number]
[2019-01-15] MEDS: Ferrous Sulfate 325 MG TAB PO SCH (10:00)
--- NOTE | 2019-01-15 10:55 | PRG ---
DATE OF SERVICE: 01/15/2019 SUBJECTIVE: Mr. Patel has no medical complaints. He is doing well postoperatively. OBJECTIVE: VITAL SIGNS: BP 168/74, pulse 72, temperature 98.6. LUNGS: Clear. HEART: Reveals a regular rate and rhythm. No murmurs, gallops, or rubs. LABORATORY DATA: Hemoglobin 9.2 and hematocrit 28.6. IMPRESSION: Stable postoperatively total knee replacement. PLAN: Continue current medications. The patient is stable for discharge when ready. Job ID: [id number]
[2019-01-15] MEDS: Atorvastatin Calcium 40 MG TAB PO SCH (22:10)
[2019-01-16] MEDS: Sodium Chloride 0.9% 1,000 ML IV SCH ×2 (01:34→09:42)
[2019-01-16 05:43] LABS: Hemoglobin 8.4 g/dL (14.0-18.0); Mean Corpuscular HGB CONC 32.5 g/dL (32.0-36.0); Mean Corpuscular Hemoglobin 28.6 pg (27.0-31.0); Mean Platelet Volume 8.2 fL (7.4-10.4); Platelet Count 128 thou/uL (130-400); Red Blood Cell (RBC) Count 2.95 mill/uL (4.70-6.10); White Blood Cell (WBC) Count 10.4 thou/uL (4.8-10.8)
[2019-01-16] MEDS: HYDROcodone/Acetaminophen 10/325 mg Tablet PO PRN ×2 (06:35→15:00)
[2019-01-16] MEDS: Ramipril 5 MG CAP PO SCH (09:35)
[2019-01-16] MEDS: Ferrous Gluconate 324 MG TAB PO SCH (09:36)
[2019-01-16] MEDS: levETIRAcetam 500 MG TAB PO SCH (09:36)
[2019-01-16] MEDS: FLUoxetine HCl 20 MG CAP PO SCH (09:36)
[2019-01-16] MEDS: Gabapentin 300 MG CAP PO SCH (09:36)
[2019-01-16] MEDS: Multivitamin W/ Minerals 1 TAB PO SCH (09:36)
[2019-01-16] MEDS: carBAMazepine 200 MG TAB PO SCH (09:37)
[2019-01-16] MEDS: CeleCOXIB 100 MG CAP PO SCH (09:37)
[2019-01-16] MEDS: Aspirin 81 mg Enteric Coated Tablet PO SCH (09:37)
[2019-01-16] MEDS: Senokot S 8.6-50 MG TAB PO SCH (09:42)
[2019-01-16] MEDS: Ferrous Sulfate 325 MG TAB PO SCH (09:42)
[2019-01-16] MEDS: Carvedilol 6.25 MG TAB PO SCH (09:45)
--- NOTE | 2019-01-16 10:56 | PRG ---
DATE OF SERVICE: 01/16/2019 SUBJECTIVE: The patient is doing well. No complaints. OBJECTIVE: VITAL SIGNS: BP 155/74, temperature 98.5, and O2 saturation 98% on 2 L. LUNGS: Clear. HEART: Reveals a regular rate and rhythm. No murmurs, gallops, or rubs. LABORATORY DATA: His hemoglobin is 8.4 and hematocrit 25.9. IMPRESSION: Stable postop. PLAN: He might wish to be started on a vitamin with iron. It is my understanding, possibly could be discharged today, I am in agreement with that. Medically stable. If he have any further problems, please not hesitate to contact me. I will be signing off the case at this time. Job ID: [id number]
--- NOTE | 2019-01-16 11:27 | PRG ---
DATE OF SERVICE: 01/16/2019 SUBJECTIVE: Nick is an 83-year-old male, postop day 3 from a left total knee arthroplasty. His pain is well controlled we are currently planning for a skilled stay. His ambulatory effort declined somewhat yesterday and his distances went from 32 feet in the afternoon of to 250 feet yesterday morning. He still has an antalgic gait, uneven and unstable gait therapy. OBJECTIVE: VITAL SIGNS: Temperature 98.8, pulse 85, respiratory rate 16 and nonlabored, O2 saturation is 95% on room air, and blood pressure is 136/79. GENERAL: He is alert and responsive and appropriate. Incision is clean. No erythema. No strike through, and he is neurovascularly intact in the involved extremity. LABORATORY DATA: Hemoglobin and hematocrit 8.4 and 25.9, which have been trending down since surgery. IMPRESSION: 1. An 83-year-old male, postop day 3 left total knee arthroplasty. 2. Anemia, hopefully, this is his kong postoperatively. PLAN: Continue current care. Transfer when skilled stay is available. May need to recheck hemoglobin and hematocrit tomorrow. Job ID: [id number]
[2019-01-16 15:42] VITALS: BP 164/73; TEMP 98.9
== END 2019-01-16 16:45 | DRG 470 ==
LOC: SDC 06:54 → SJJU 12:49
PROVIDERS: ADMIT Orthopaedic Surgery; ATTEND Orthopaedic Surgery
PROC: 0SRD0J9 Replacement of Left Knee Joint with Synthetic Substitute, Cemented, Open Approach (ICD-10-PCS; principal; 2019-01-13)
DX: M17.12 Unilateral primary osteoarthritis, left knee (principal); I42.9 Cardiomyopathy, unspecified; G40.909 Epilepsy, unspecified, not intractable, without status epilepticus; R42 Dizziness and giddiness; I25.10 Atherosclerotic heart disease of native coronary artery without angina pectoris; M21.162 Varus deformity, not elsewhere classified, left knee; D64.9 Anemia, unspecified; Z87.820 Personal history of traumatic brain injury; Z95.810 Presence of automatic (implantable) cardiac defibrillator; Z90.49 Acquired absence of other specified parts of digestive tract; Z79.899 Other long term (current) drug therapy; Z79.82 Long term (current) use of aspirin; Z95.1 Presence of aortocoronary bypass graft
CPT/HCPCS: 36415; 85027; C1713; C1776; J0131; J0690; J1885; J2001; J2250; J2405; J2704; J2795; J3010; J3370; J3490; S0020

== ENCOUNTER 2019-07-02 07:41 | Outpatient (CLI) | payer MEDICARE ==
[2019-07-02 10:28] LABS: #Eosinphils 0.3 thou/uL (0.0-0.7); #Lymphocytes 1.3 thou/uL (1.20-3.40); #Monocytes 0.8 thou/uL (0.11-0.59); #Neutrophils 3.5 thou/uL (1.40-6.50); %Basophils 0.8 % (0.0-1.0); %Eosinophils 5.2 % (0.0-10.0); %Lymphocytes 21.1 % (21.0-51.0); %Monocytes 13.6 % (0.0-10.0); %Neutrophils 59.4 % (42.0-75.0); Hemoglobin 13.7 g/dL (14.0-18.0); Mean Corpuscular HGB CONC 32.7 g/dL (32.0-36.0); Mean Corpuscular Hemoglobin 31.6 pg (27.0-31.0); Mean Corpuscular Volume 96.7 fL (78.0-98.0); Mean Platelet Volume 6.5 fL (7.4-10.4); Platelet Count 246 thou/uL (130-400); RBC Distribution Width 14.1 % (11.5-14.5); Red Blood Cell (RBC) Count 4.34 mill/uL (4.70-6.10)
[2019-07-02 10:30] LABS: Bacteria/HPF None Seen HPF (None Seen); Bilirubin Negative (Negative); Blood, Urine Negative (Negative); Clarity Clear (Clear); Glucose, Urine (Dipstick) Normal (Negative); Leukocyte Negative Leu/uL (Negative); Nitrite Negative (Negative); Protein, Urine (Dipstick) Negative (Neg-Trace); RBC/HPF 0-3 HPF (0-3); Squamous Epithelial None Seen HPF (0-3); Urobilinogen Normal mg/dL (Less than 2); WBC/HPF 0-3 HPF (0-3)
[2019-07-02 10:38] LABS: PTT 30.3 SEC (22.9-36.1); Prothrombin Time 13.5 SEC (12.0-14.7)
[2019-07-02 10:47] LABS: Anion Gap 12 mmol/L (10-20); BUN (Urea Nitrogen) 12 mg/dL (8.4-25.7); Calc. Creatinine Clearance 0 mL/min (70-130); Calcium 9.2 mg/dL (7.8-10.44); Carbon Dioxide 27 mmol/L (23-31); Chloride 105 mmol/L (98-107); Estimated GFR-MDRD 65; Glucose 98 mg/dL (83-110); Potassium 4.2 mmol/L (3.5-5.1); Sodium 140 mmol/L (136-145)
--- NOTE | 2019-07-03 08:31 | EKG ---
Test Reason : Blood Pressure : / mmHG Vent. Rate : 081 BPM Atrial Rate : 081 BPM P-R Int : 194 ms QRS Dur : 126 ms QT Int : 404 ms P-R-T Axes : 044 063 256 degrees QTc Int : 469 ms Electronic atrial pacemaker Left ventricular hypertrophy with QRS widening and repolarization abnormality Diffuse T wave inversion possibly ischemia Abnormal ECG Confirmed by DR. Yeyo HENDRICKS ([id number]) on 07/03/2019 8:30:33 AM Referred By: IERO Confirmed By:DR. Yeyo HENDRICKS
== END 2019-07-02 07:42 | disposition home or self-care (01) ==
LOC: LABBT 07:41
PROVIDERS: ATTEND Orthopaedic Surgery
DX: Z01.818 Encounter for other preprocedural examination (principal); M17.11 Unilateral primary osteoarthritis, right knee
CPT/HCPCS: 80048; 81001; 85025; 85610; 85730; 87081; 93005; 93010

== ENCOUNTER 2019-07-07 06:21 | Day surgery (SDC) | payer MEDICARE ==
[2019-07-02 09:19] VITALS: BMI 25.2
[2019-07-07] MEDS ORDERED: Sodium Chloride 0.9% 100 ML ONE (06:45)
[2019-07-07] MEDS ORDERED: Tranexamic Acid 1,000 MG/10 ML VIAL ONE (06:45)
[2019-07-07] MEDS ORDERED: Fentanyl 100 MCG/2 ML VIAL ONE ×3 (08:09→12:50)
[2019-07-07] MEDS ORDERED: Midazolam HCl 2 mg/2 ml Vial ONE (08:09)
[2019-07-07] MEDS ORDERED: Zolpidem Tartrate 5 MG TAB PO PRN ×2 (08:48→11:30)
[2019-07-07] MEDS ORDERED: traMADol HCl 50 MG TAB PO PRN ×2 (08:48)
[2019-07-07] MEDS ORDERED: Ropivacaine HCl/PF 250 ML in Premix Bag 1 BAG NERVE BLCK SCH (08:48)
[2019-07-07] MEDS ORDERED: Acetaminophen 325 MG TAB PO PRN ×2 (08:48→11:30)
[2019-07-07] MEDS ORDERED: Ondansetron PF 4 MG/2 ML Vial IVP PRN ×2 (08:48→11:30)
[2019-07-07] MEDS ORDERED: Promethazine HCl 25 MG/ML VIAL IM PRN ×3 (08:48→11:40)
[2019-07-07] MEDS ORDERED: Fentanyl 100 MCG/2 ML VIAL SLOW IVP PRN (08:48)
[2019-07-07] MEDS ORDERED: HYDROcodone/Acetaminophen 10/325 mg Tablet PO PRN (08:48)
[2019-07-07] MEDS ORDERED: Bupivacaine PF 0.5% 30 ML VIAL ONE (09:27)
[2019-07-07] MEDS ORDERED: Dexamethasone 20 MG/5 ML VIAL ONE (11:05)
[2019-07-07] MEDS ORDERED: Lidocaine 1% PF 5 ML VIAL ONE (11:05)
[2019-07-07] MEDS ORDERED: Ondansetron PF 4 MG/2 ML Vial ONE (11:05)
[2019-07-07] MEDS ORDERED: Ropivacaine 0.2% HCl/PF (40 MG/20 ML VIAL) ONE (11:05)
[2019-07-07] MEDS ORDERED: PROPOFOL 200 MG/20 ML VIAL ONE (11:05)
[2019-07-07] MEDS ORDERED: PHENYLEPHRINE-NS 100 MCG/ML 10 ML SYRINGE ONE (11:05)
[2019-07-07] MEDS ORDERED: Ropivacaine 0.5% HCl/PF (150 MG/30 ML VIAL) ONE (11:05)
[2019-07-07] MEDS ORDERED: Tranexamic Acid 1,000 MG in Sodium Chloride 0.9% 100 ML IVPB SCH (11:30)
[2019-07-07] MEDS ORDERED: diphenhydrAMINE 25 MG CAP PO PRN (11:30)
[2019-07-07] MEDS ORDERED: Morphine Sulfate 2 MG/ML SYRINGE SLOW IVP PRN (11:40)
[2019-07-07] MEDS ORDERED: HYDROmorphone 2 MG/ML VIAL SLOW IVP PRN (11:40)
[2019-07-07] MEDS ORDERED: Ondansetron HCl/PF 4 MG/2 ML Vial IVP PRN (11:40)
[2019-07-07] MEDS ORDERED: Promethazine HCl 25 MG/ML VIAL SLOW IVP PRN (11:40)
[2019-07-07] MEDS ORDERED: PACU-Morphine 4MG/ML VIAL SLOW IVP PRN (11:40)
--- NOTE | 2019-07-07 12:17 | OP ---
DATE OF PROCEDURE: 07/07/2019 PREOPERATIVE DIAGNOSIS: Right knee osteoarthrosis. POSTOPERATIVE DIAGNOSIS: Right knee osteoarthrosis. PROCEDURE PERFORMED: Right total knee replacement using Bio[employer] pinless navigation. PRESCHOOL ASSISTANT: Jah Scherer PA-C BLOOD LOSS: Minimal. COMPLICATIONS: None. ANESTHESIA: He had general anesthetic as well as preoperative block. IMPLANTS: Triathlon total knee system. We used a size 3 cruciate-retaining right femur. We used a size 3 primary tibial baseplate. We used a 3 x 13 mm CS X3 poly and a 29 x 9 X3 patella. TOURNIQUET TIME: DISPOSITION: He did go to recovery room in stable condition. INDICATIONS: An 83-year-old male, who has had bilateral knee arthritis for years. At this time, he is presenting to have his right knee replaced as he has had his left knee replaced in the last 6 months. PROCEDURE IN DETAIL: After all appropriate consent forms were explained and signed, the patient was taken back to the operating room and at this time was given general anesthetic. Once the level of anesthesia was appropriate, a well-padded tourniquet was placed on the right leg, and the leg was then prepped and draped in standard surgical fashion. The limb was exsanguinated and tourniquet taken up to 300 mmHg. Midline incision was made with a 10 blade down through the skin and subcutaneous tissue. Bovie electrocautery was used to coagulate any brisk venous bleeding. A new blade was used to make a medial parapatellar arthrotomy. Small subperiosteal release was performed medially and excess fat pad was removed. The knee was flexed up to gain access to the femur. The femur was navigated and distal femoral resection was made. Epicondylar access was used to align our sizing jig and this was pinned in place. We sized our femur to be a size 3 cruciate-retaining right femur. 4:1 cutting block was applied and pinned. Anterior and posterior chamfer cuts were then made. We navigated out our proximal tibia and made our proximal tibial resection. Spreaders were used to remove any posterior osteophytes off the back of the femur as well as remaining meniscal tissue. A long alignment kavin was then used to achieve correct rotation of our tibial baseplate and a size 3 primary tibial baseplate was chosen. This was pinned in place. We trialed the polyethylene and we used a 3 x 13 mm CS X3 polyethylene gave us full extension and good stability throughout range of motion. Two towel clips and a saw were used to cut our patella. Three lug nuts were drilled and a 29 x 9 X3 patella was trialed which sat nicely in the trochlear groove. We then drilled our femur and punched our tibia. All components were removed. The knee was thoroughly irrigated and dried. Cement was mixed into the cement gun on the back table. Components were then placed. The knee was held out in full extension until the cement had dried. All excess bone cement was removed. Multiple #2 Vicryl stitches as well as a Quill were used to close our extensor mechanism. 0 Quill followed by a running Monoderm was then used to close the skin. Surgicel glue was then used on the skin. Once this had dried, soft tissue dressing was applied to the limb, tourniquet was let down, and the toes pinked up nicely. The patient was then awakened and taken to the recovery room in stable condition. All counts were correct at the end of the case. The patient did receive preoperative IV antibiotics. The patient was injected with Marcaine for postoperative pain relief. Job ID: [id number]
[2019-07-07] MEDS: CEFAZOLIN 2 GM in Premix Bag 1 BAG IVPB SCH ×2 (15:11→22:39)
[2019-07-07] MEDS: Sodium Chloride 0.9% 1,000 ML IV SCH ×2 (15:12→21:37)
--- NOTE | 2019-07-07 16:06 | HP ---
Consultation to Dr. Aneesh Peacock. REASON FOR CONSULTATION: Consultation for medical management in postop patient. HISTORY OF PRESENT ILLNESS: The patient underwent right total knee replacement this morning. He has had no chest pain, shortness of breath, dizziness, nausea, fever, chills. He has had some pain in his right knee postsurgery, which is controlled with pain medications. PAST MEDICAL HISTORY: He has had coronary artery disease with a coronary artery bypass graft. He has a pacemaker. He has hypertension and dyslipidemia. 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 He has seizure disorder. CURRENT MEDICATIONS: 1. Levetiracetam 1000 mg p.o. b.i.d. 2. Gabapentin 300 mg p.o. b.i.d. 3. Lipitor 40 mg a day. 4. Vascepa 1 g b.i.d. 5. Protonix 40 mg a day. 6. Ramipril 5 mg twice a day. 7. Carbamazepine 200 mg daily. 8. Coreg 6.25 mg twice a day. 9. Aspirin 81 mg a day. 10. Fluoxetine 20 mg a day. 11. Ferrous sulfate 325 mg a day. ALLERGIES: NO KNOWN DRUG ALLERGIES. PAST SURGICAL HISTORY: He had a head injury in 1991 and apparent subdural hematoma, which required surgery. He has had a coronary artery bypass graft. SOCIAL HISTORY: Mother had coronary artery disease. There is no diabetes in the family. He is . Full code status. His brother, Florian Baldwin, is his surrogate decision maker. He does not smoke or drink alcohol. No illicit drugs. REVIEW OF SYSTEMS: HEAD: No headaches, dizziness, or fainting. EYES: No double vision, flashing lights. EAR, NOSE, AND THROAT: No ear pain or drainage. No nasal bleeding. No trouble swallowing. CARDIAC: No chest pain, orthopnea, or paroxysmal nocturnal dyspnea. RESPIRATION: No cough, wheezing, or asthma. GASTROINTESTINAL: No nausea, vomiting, diarrhea, or constipation. GENITOURINARY: No hematuria or dysuria. MUSCULOSKELETAL: He had severe osteoarthritis of the right knee, requiring surgery. He has no swelling in his legs or pain in his legs at this time. NEUROLOGIC: He has a history of a head injury, requiring surgery. He is on antiseizure medications. He has a history of a stroke in his face 7 years ago. PSYCHIATRIC: No anxiety or depression. SKIN: No bruising, bleeding, or rash. HEME/LYMPH: No tender or swollen lymph nodes in axilla, inguinal, or cervical area. PHYSICAL EXAMINATION: GENERAL: The patient is Greek-speaking, alert, calm, information through advance scout. VITAL SIGNS: Blood pressure 172/93, pulse 82, respirations 20, and temperature 97.8. HEAD, EYES, EARS, NOSE, AND THROAT: Revealed pupils equal and round. Extraocular movements grossly intact. Sclerae are white. Tympanic membranes clear. Nose clear. Oral mucous membranes are wet. He has missing teeth. NECK: No jugular venous distention, adenopathy, or thyromegaly. CHEST: Clear to auscultation and percussion. HEART: Regular rate and rhythm. First and second heart sounds are audible. No murmurs. No gallops. ABDOMEN: Soft. Bowel sounds are normal. There is no hepatosplenomegaly. No mass. No rebound. EXTREMITIES: Reveal no cyanosis, clubbing, or edema. PULSES: Carotid, radial, femoral, and dorsalis pedis pulses were palpable. SKIN: Warm and dry without bruises or rash. HEME/LYMPH: No tender or swollen lymph nodes in axilla, inguinal, or cervical area. NEUROLOGIC: Cranial nerves 2 through 12 are intact. Moves all extremities. JOINTS: Bandaged right knee. LABORATORY AND DIAGNOSTIC DATA: Electrocardiogram, atrial pacing with ventricular sensing, left ventricular hypertrophy with repolarization abnormality. Laboratory done on 07/02/2019, hemoglobin 13.7, white count 6.0, and platelet count 246,000. INR 1.0. Basic metabolic profile normal. Urine is clear. There are no x-rays presented. DIAGNOSES: Postop total knee replacement, coronary artery disease, pacemaker, dual-chamber, hypertension, dyslipidemia, and seizure disorder. The patient is stable postop. I agree with continuing his home medicines. The patient is indeed complicated. Thank you for the consult. We will follow with you. Job ID: [id number]
[2019-07-07] MEDS ORDERED: Vancomycin HCl 1 GM in Premix Bag 1 BAG IVPB SCH (18:00)
[2019-07-07] MEDS: Senokot S 8.6-50 MG TAB PO SCH (21:34)
[2019-07-07] MEDS: Ferrous Gluconate 324 MG TAB PO SCH (21:35)
[2019-07-07] MEDS: Ramipril 5 MG CAP PO SCH (21:35)
[2019-07-07] MEDS: Aspirin 81 mg Enteric Coated Tablet PO SCH (21:35)
[2019-07-07] MEDS: Atorvastatin Calcium 40 MG TAB PO SCH (21:35)
[2019-07-07] MEDS: levETIRAcetam 500 MG TAB PO SCH (21:35)
[2019-07-07] MEDS: Gabapentin 300 MG CAP PO SCH (21:35)
[2019-07-07] MEDS: Carvedilol 6.25 MG TAB PO SCH (21:36)
[2019-07-07] MEDS: Icosapent Ethyl 1 GM CAPSULE PO SCH (21:37)
[2019-07-08 05:04] LABS: Hemoglobin 10.8 g/dL (14.0-18.0); Mean Corpuscular Hemoglobin 31.9 pg (27.0-31.0); Mean Corpuscular Volume 96.7 fL (78.0-98.0); Mean Platelet Volume 6.2 fL (7.4-10.4); Platelet Count 207 thou/uL (130-400); RBC Distribution Width 13.7 % (11.5-14.5); Red Blood Cell (RBC) Count 3.39 mill/uL (4.70-6.10); White Blood Cell (WBC) Count 10.1 thou/uL (4.8-10.8)
[2019-07-08] MEDS: Sodium Chloride 0.9% 1,000 ML IV SCH ×3 (05:07→21:40)
[2019-07-08] MEDS: Icosapent Ethyl 1 GM CAPSULE PO SCH ×2 (07:42→20:07)
[2019-07-08] MEDS: Ramipril 5 MG CAP PO SCH ×2 (07:42→20:06)
[2019-07-08] MEDS: Aspirin 81 mg Enteric Coated Tablet PO SCH ×2 (07:42→20:06)
[2019-07-08] MEDS: Carvedilol 6.25 MG TAB PO SCH ×2 (07:43→20:06)
[2019-07-08] MEDS: FLUoxetine HCl 20 MG CAP PO SCH (07:44)
[2019-07-08] MEDS: carBAMazepine 200 MG TAB PO SCH (07:44)
[2019-07-08] MEDS: CeleCOXIB 100 MG CAP PO SCH (07:44)
[2019-07-08] MEDS: Gabapentin 300 MG CAP PO SCH ×2 (07:44→20:07)
[2019-07-08] MEDS: Senokot S 8.6-50 MG TAB PO SCH ×2 (07:44→20:06)
[2019-07-08] MEDS: levETIRAcetam 500 MG TAB PO SCH ×2 (07:45→20:06)
[2019-07-08] MEDS: Ferrous Gluconate 324 MG TAB PO SCH ×2 (07:45→20:06)
[2019-07-08] MEDS: Multivitamin W/ Minerals 1 TAB PO SCH (07:45)
[2019-07-08] MEDS ORDERED: FLU VACC TS2019-20(65YR UP)/PF 180 MCG/0.5 ML SYRINGE IM ONE (09:00)
[2019-07-08] MEDS ORDERED: Non-Formulary Item 1 EACH (Ferrous Sulfate [Ferosul] 325 MG) PO SCH (09:00)
--- NOTE | 2019-07-08 10:48 | PRG ---
DATE OF SERVICE: 07/08/2019 SUBJECTIVE: Nick is an 83-year-old male, postop day 1 from right total knee arthroplasty. He is doing relatively well. His pain has been controlled overnight. He did not get much sleep last night, but today he is comfortable. OBJECTIVE: VITAL SIGNS: Temperature 98, pulse 79, respiratory rate 16, and blood pressure 145/82. GENERAL: He is alert and oriented to person, place, time, situation, responsive, appropriate with examiner. EXTREMITIES: Incision is clean. No strike through. He is neurovascularly intact in the right lower extremity. LABORATORY DATA: Hemoglobin and hematocrit 10.8 and 32.8. IMPRESSION: An 83-year-old male postop day 1 right total knee arthroplasty, doing well. PLAN: Continue current care. We will transfer to [facility] when ready to accept this. Job ID: [id number]
--- NOTE | 2019-07-08 15:18 | PDOC.HOSPP ---
- Subjective Encounter Date: 07/08/19 Encounter Time: 15:16 Subjective: walking with walker. doing well with minimal mdiscomfort - Objective Vital Signs & Weight: Vital Signs (12 hours) Temp Pulse Resp BP BP Pulse Ox 07/08/19 12:14 98.7 F 83 18 158/69 H 91 L 07/08/19 08:00 93 L 07/08/19 07:43 145/82 H 07/08/19 07:42 145/82 H 07/08/19 07:14 98.7 F 79 16 145/82 H 93 L 07/08/19 04:00 99 F 80 18 118/71 96 Weight Admit Weight 156 lb Weight 156 lb I&O: 07/07/19 07/08/19 07/09/19 06:59 06:59 06:59 Intake Total 2130 Output Total 1999 Balance 130 Result Diagrams: 07/08/19 04:55 Hospitalist ROS - Medication Medications: Active Medications Generic Name Dose Route Start Last Admin Trade Name Freq PRN Reason Stop Dose Admin Aspirin 81 mg 07/07/19 21:00 07/08/19 07:42 Ecotrin PO 81 mg BID TRUDY Administration Atorvastatin Calcium 40 mg 07/07/19 21:00 07/07/19 21:35 Lipitor PO 40 mg HS TRUDY Administration Carbamazepine 200 mg 07/08/19 09:00 07/08/19 07:44 Tegretol PO 200 mg DAILY TRUDY Administration Carvedilol 6.25 mg 07/07/19 21:00 07/08/19 07:43 Coreg PO 6.25 mg BID TRUDY Administration Celecoxib 200 mg 07/08/19 09:00 07/08/19 07:44 Celebrex PO 200 mg DAILY TRUDY Administration Cholecalciferol 5,000 units 07/08/19 09:00 07/08/19 07:45 Vitamin D3 PO 5,000 units DAILY TRUDY Administration Diphenhydramine HCl 25 mg 07/07/19 11:30 07/08/19 00:57 Benadryl PO 25 mg Q6H PRN Administration Itching Ferrous Gluconate 324 mg 07/07/19 21:00 07/08/19 07:45 Fergon PO 324 mg BID TRUDY Administration Fluoxetine HCl 20 mg 07/08/19 09:00 07/08/19 07:44 Prozac PO 20 mg DAILY TRUDY Administration Gabapentin 300 mg 07/07/19 21:00 07/08/19 07:44 Neurontin PO 300 mg BID TRUDY Administration Ropivacaine 250 ml/ Device 250 mls @ 10 mls/hr 07/07/19 08:48 07/08/19 12:28 NERVE BLCK 07/10/19 08:47 250 mls INF TRUDY Administration Sodium Chloride 1,000 mls @ 100 mls/hr 07/07/19 11:30 07/08/19 05:07 Normal Saline 0.9% IV Not Given .Q10H TRUDY Iron/Minerals/Multivitamins 1 tab 07/08/19 09:00 07/08/19 07:45 Theragran M PO 1 tab DAILY TRUDY Administration Levetiracetam 1,000 mg 07/07/19 21:00 07/08/19 07:45 Keppra PO 1,000 mg BID TRUDY Administration Miscellaneous Medication 1 gm 07/07/19 21:00 07/08/19 07:42 Vascepa PO 1 gm BID TRUDY Administration Pantoprazole Sodium 40 mg 07/08/19 09:00 07/08/19 07:44 Protonix PO 40 mg DAILY TRUDY Administration Ramipril 5 mg 07/07/19 21:00 07/08/19 07:42 Altace PO 5 mg BID TRUDY Administration Senna/Docusate Sodium 2 tab 07/07/19 21:00 07/08/19 07:44 Senokot S PO 2 tab BID TRUDY Administration Tramadol HCl 100 mg 07/07/19 08:48 07/08/19 07:42 Ultram PO 100 mg Q6H PRN Administration Moderate Pain 4-6 - Exam General Appearance: awake alert Neck: no JVD Heart: RRR, no murmur Respiratory: CTAB Gastrointestinal: soft, normal bowel sounds Extremities: no edema Hosp A/P (1) CAD (coronary artery disease) Code(s): I25.10 - ATHSCL HEART DISEASE OF [place] CORONARY ARTERY W/O ANG PCTRS Status: Chronic Qualifiers: Coronary Disease-Associated Artery/Lesion type: [place] artery [place] vs. transplanted heart: [place] heart Associated angina: without angina Qualified Code(s): I25.10 - Atherosclerotic heart disease of [place] coronary artery without angina pectoris (2) HTN (hypertension) Code(s): I10 - ESSENTIAL (PRIMARY) HYPERTENSION Status: Chronic Qualifiers: Hypertension type: essential hypertension Qualified Code(s): I10 - Essential (primary) hypertension (3) Seizure disorder Code(s): G40.909 - EPILEPSY, UNSP, NOT INTRACTABLE, WITHOUT STATUS EPILEPTICUS Status: Chronic (4) Dyslipidemia Code(s): E78.5 - HYPERLIPIDEMIA, UNSPECIFIED Status: Chronic - Plan postop-doing well cont home meds
[2019-07-08] MEDS: HYDROcodone/Acetaminophen 10/325 mg Tablet PO PRN (16:56)
[2019-07-08] MEDS: Atorvastatin Calcium 40 MG TAB PO SCH (20:07)
[2019-07-09 05:52] LABS: Mean Corpuscular HGB CONC 32.9 g/dL (32.0-36.0); Mean Corpuscular Hemoglobin 32.2 pg (27.0-31.0); Mean Corpuscular Volume 97.9 fL (78.0-98.0); Mean Platelet Volume 6.8 fL (7.4-10.4); Platelet Count 167 thou/uL (130-400); RBC Distribution Width 13.7 % (11.5-14.5); Red Blood Cell (RBC) Count 3.09 mill/uL (4.70-6.10); White Blood Cell (WBC) Count 11.7 thou/uL (4.8-10.8)
[2019-07-09] MEDS: HYDROcodone/Acetaminophen 10/325 mg Tablet PO PRN ×2 (06:10→11:17)
[2019-07-09] MEDS: Senokot S 8.6-50 MG TAB PO SCH (09:01)
[2019-07-09] MEDS: CeleCOXIB 100 MG CAP PO SCH (09:01)
[2019-07-09] MEDS: Aspirin 81 mg Enteric Coated Tablet PO SCH (09:01)
[2019-07-09] MEDS: FLUoxetine HCl 20 MG CAP PO SCH (09:01)
[2019-07-09] MEDS: Ramipril 5 MG CAP PO SCH (09:02)
[2019-07-09] MEDS: Ferrous Gluconate 324 MG TAB PO SCH (09:02)
[2019-07-09] MEDS: Gabapentin 300 MG CAP PO SCH (09:02)
[2019-07-09] MEDS: levETIRAcetam 500 MG TAB PO SCH (09:02)
[2019-07-09] MEDS: Carvedilol 6.25 MG TAB PO SCH (09:02)
[2019-07-09] MEDS: carBAMazepine 200 MG TAB PO SCH (09:02)
[2019-07-09] MEDS: Multivitamin W/ Minerals 1 TAB PO SCH (09:02)
[2019-07-09] MEDS: Icosapent Ethyl 1 GM CAPSULE PO SCH (09:03)
[2019-07-09 15:56] VITALS: BP 146/76; TEMP 98.4
== END 2019-07-09 17:45 ==
LOC: SDC 06:21 → SJJU 11:34 → SDC 07-09 17:45
PROVIDERS: ATTEND Orthopaedic Surgery
PROC: 0SRC0JZ Replacement of Right Knee Joint with Synthetic Substitute, Open Approach (ICD-10-PCS; principal; 2019-07-07)
PROC: 8E0YXBZ Computer Assisted Procedure of Lower Extremity (ICD-10-PCS; 2019-07-07)
DX: M17.11 Unilateral primary osteoarthritis, right knee (principal); I10 Essential (primary) hypertension; I25.10 Atherosclerotic heart disease of native coronary artery without angina pectoris; G40.909 Epilepsy, unspecified, not intractable, without status epilepticus; Z79.82 Long term (current) use of aspirin; Z79.899 Other long term (current) drug therapy; Z86.73 Personal history of transient ischemic attack (TIA), and cerebral infarction without residual deficits; Z95.0 Presence of cardiac pacemaker; Z95.1 Presence of aortocoronary bypass graft
CPT/HCPCS: 36415; 85027; C1713; C1776; J0690; J1100; J2001; J2250; J2405; J2704; J2795; J3010; J3370; J3490; Q0163; S0020

== ENCOUNTER 2020-01-01 17:05 | Emergency (ER) | payer MEDICARE ==
[~2020-01-01 17:05] MED LIST changes: -ISOVUE-370 76%-LOCM 1 ML ONE; +Iopamidol 370 76% 100 ML VIAL ONE
[2020-01-01 18:01] LABS: Hemoglobin 12.2 g/dL (14.0-18.0); Mean Corpuscular HGB CONC 32.6 g/dL (32.0-36.0); Mean Corpuscular Hemoglobin 31.5 pg (27.0-31.0); Mean Corpuscular Volume 96.5 fL (78.0-98.0); Mean Platelet Volume 6.4 fL (7.4-10.4); Platelet Count 239 thou/uL (130-400); RBC Distribution Width 13.7 % (11.5-14.5); Red Blood Cell (RBC) Count 3.89 mill/uL (4.70-6.10); White Blood Cell (WBC) Count 4.5 thou/uL (4.8-10.8)
[2020-01-01 18:11] LABS: ALT (SGPT) 15 U/L (8-55); AST (SGOT) 23 U/L (5-34); Albumin 4.1 g/dL (3.4-4.8); Alkaline Phosphatase 68 U/L (40-110); Anion Gap 12 mmol/L (10-20); BUN (Urea Nitrogen) 21 mg/dL (8.4-25.7); Bilirubin, Total 0.3 mg/dL (0.2-1.2); Calc. Creatinine Clearance 0 mL/min (70-130); Carbon Dioxide 28 mmol/L (23-31); Chloride 106 mmol/L (98-107); Estimated GFR-MDRD 61; Globulin 2.5 g/dL (2.4-3.5); Glucose 99 mg/dL (83-110); Potassium 4.7 mmol/L (3.5-5.1); Protein, Total 6.6 g/dL (5.8-8.1); Sodium 141 mmol/L (136-145)
[2020-01-01 18:32] LABS: Eosinophils 4 % (0-10); Lymphocytes 39 % (21-51); MDiff Complete? YES; Monocytes 11 % (0-10); Neutrophil 37 % (42-75); Platelet Morphology Comment Appears Adequate; RBC Morphology Normal; Reactive Lymphocytes 8 % (0-10)
--- NOTE | 2020-01-01 18:41 | CT ---
EXAM: CT ABDOMEN AND PELVIS HISTORY: Abdominal pain. COMPARISON: 02/19/2018 Procedure: Multiple contiguous axial images were obtained and a CT of the abdomen and pelvis with IV contrast. C oronal reformats were performed. FINDINGS: Lower Chest: Lung parenchymal opacities are presumed to be areas of scar, atelectasis or infiltrate. Vessels: Atherosclerosis and elongation aorta. Heart: Normal heart size. There is no significant pericardial fluid. Prosthetic aortic valve is noted Abdomen: Portal vein:Patent Gallbladder: No calcified gallstones. Normal caliber wall. Liver: within normal limits. Pancreas: within normal limits. Spleen: within normal limits. Adrenals: within normal limits. Kidneys: Hypodensities in the right renal cortex are presumed to represent cortical cysts. Bilaterall y no obstructive uropathy. Peritoneum: No ascites or free air, no fluid collection. Redemonstration of a irregular hypodensity i n the anterior left lower quadrant, measuring 2.6 x 2.2 cm. Attenuation coefficient is 7 Hounsfield units suggesting a nonspecific cystic lesion. Previous, this lesion measured 2.7 x 2.4 cm. Bowel: Limited evaluation due to the lack of oral contrast administration. No evidence of bowel obstr uction. Ileocecal junction is unremarkable. Normal caliber appendix. Scattered fecal material in a nondistended, nondilated colon. Diverticulosis in the descending colon and sigmoid colon. Minimal muc osal thickening and minimal pericolonic fat stranding in the junction of the distal descending colon and sigmoid colon. Mild colitis cannot be excluded. Mesentery and Retroperitoneum: No enlarged mesenteric or retroperitoneal lymph nodes. Abdominal Wall: within normal limits. Pelvis: Reproductive Organs: Reproductive organs are unremarkable. Pelvis: No mass, lymphadenopathy, free air or free fluid. Right inguinal hernia containing mesenteric fat. Small amount of fluid in the inguinal hernia is noted. Bladder: within normal limits. Bones: within normal limits. IMPRESSION: 1. Possible mild colitis involving the left hemicolon as described above 2. Right inguinal hernia containing fat and fluid 3. Ill-defined hypodensity in the left lower quadrant, unchanged. Nonspecific fluid attenuation lesio n/fluid collection is recommended. Transcribed Date/Time: 01/01/2020 6:50 PM
[2020-01-01 19:03] LABS: Bacteria/HPF None Seen HPF (None Seen); Bilirubin Negative (Negative); Blood, Urine Negative (Negative); Clarity Clear (Clear); Glucose, Urine (Dipstick) Normal (Negative); Ketone, Urine Negative (Negative); Leukocyte 250 Leu/uL (Negative); Nitrite Negative (Negative); Protein, Urine (Dipstick) Negative (Neg-Trace); RBC/HPF 0-3 HPF (0-3); Specific Gravity, Urine 1.028 (1.002-1.036); Squamous Epithelial 0-3 HPF (0-3); Urobilinogen Normal mg/dL (Less than 2); WBC/HPF 0-3 HPF (0-3)
== END 2020-01-01 19:52 | disposition home or self-care (01) ==
LOC: ERS 17:05
DX: K52.9 Noninfective gastroenteritis and colitis, unspecified (principal); E78.5 Hyperlipidemia, unspecified; E78.00 Pure hypercholesterolemia, unspecified; I10 Essential (primary) hypertension; F31.9 Bipolar disorder, unspecified; Z79.899 Other long term (current) drug therapy; Z79.82 Long term (current) use of aspirin
CPT/HCPCS: 74177; 80053; 81003; 81015; 85025; Q9967

== ENCOUNTER 2022-01-04 19:22 | Observation (INO) | payer MEDICARE, OTHER ==
[2022-01-04 20:56] LABS: Bilirubin Negative (Negative); Blood, Urine Negative (Negative); Clarity Clear (Clear); Glucose, Urine (Dipstick) Normal (Negative); Ketone, Urine Negative (Negative); Leukocyte 250 Leu/uL (Negative); Nitrite Negative (Negative); Protein, Urine (Dipstick) 10 mg/dL (Neg-Trace); RBC/HPF 0-3 HPF (0-3); Squamous Epithelial None Seen HPF (0-3); Urobilinogen Normal mg/dL (Less than 2); Yeast-Budding Rare HPF (None Seen)
[2022-01-04 21:04] LABS: Bacteria/HPF 1+ HPF (None Seen)
[2022-01-04 23:06] LABS: Hemoglobin 12.1 g/dL (14.0-18.0); Mean Corpuscular HGB CONC 34.4 g/dL (32.0-36.0); Mean Platelet Volume 6.6 fL (7.4-10.4); Platelet Count 222 thou/uL (130-400); RBC Distribution Width 12.2 % (11.5-14.5); Red Blood Cell (RBC) Count 3.54 mill/uL (4.70-6.10); White Blood Cell (WBC) Count 5.8 thou/uL (4.8-10.8)
[2022-01-04 23:25] LABS: ALT (SGPT) 33 U/L (8-55); AST (SGOT) 36 U/L (5-34); Albumin 4.1 g/dL (3.4-4.8); Alkaline Phosphatase 57 U/L (40-110); Anion Gap 15 mmol/L (10-20); BUN (Urea Nitrogen) 24 mg/dL (8.4-25.7); Bilirubin, Total 0.4 mg/dL (0.2-1.2); Calc. Creatinine Clearance 0 mL/min (70-130); Calcium 9.2 mg/dL (7.8-10.44); Carbon Dioxide 23 mmol/L (23-31); Chloride 103 mmol/L (98-107); Estimated GFR 35; Globulin 2.5 g/dL (2.4-3.5); Glucose 100 mg/dL (83-110); Potassium 3.7 mmol/L (3.5-5.1); Protein, Total 6.6 g/dL (5.8-8.1); Sodium 137 mmol/L (136-145)
[2022-01-04 23:31] LABS: Band 1 % (5-11); Burr Cells SLIGHT = 2-5 cells (100X) (0-1/hpf); Eosinophils 3 % (0-10); Giant Platelets SLIGHT; Large Platelets SLIGHT; Lymphocytes 30 % (21-51); MDiff Complete? YES; Macrocytosis SLIGHT = 6-15 cells (100X) (0-5/hpf); Monocytes 10 % (0-10); Neutrophil 47 % (42-75); Ovalocytes SLIGHT = 2-5 cells (100X) (0-1/hpf); Platelet Morphology Comment Appears Adequate; Reactive Lymphocytes 8 % (0-10)
[2022-01-05] MEDS ORDERED: Clotrimazole 1% Cream 15 GM TUBE TOP SCH (01:15)
[2022-01-05] MEDS ORDERED: cefTRIAXone\\ROCEPHIN 1 GM VIAL ONE (01:16)
[2022-01-05] MEDS ORDERED: Clotrimazole 1 % Cream 30 GM TUBE TOP SCH ×2 (01:30→09:00)
[2022-01-05] MEDS ORDERED: Fluconazole 100 MG TAB PO SCH (03:30)
[2022-01-05] MEDS ORDERED: Sodium Chloride 0.9% 1,000 ML IV SCH (03:30)
[2022-01-05 04:43] VITALS: BMI 25.2
[2022-01-05] MEDS ORDERED: Ondansetron PF 4 MG/2 ML Vial IVP PRN (05:00)
[2022-01-05] MEDS ORDERED: Acetaminophen 325 MG TAB PO PRN (05:00)
[2022-01-05 06:34] LABS: Hemoglobin 11.1 g/dL (14.0-18.0); Mean Corpuscular HGB CONC 34.3 g/dL (32.0-36.0); Mean Corpuscular Hemoglobin 33.9 pg (27.0-31.0); Mean Platelet Volume 6.4 fL (7.4-10.4); Platelet Count 194 thou/uL (130-400); Red Blood Cell (RBC) Count 3.26 mill/uL (4.70-6.10)
[2022-01-05 06:54] LABS: Anion Gap 13 mmol/L (10-20); BUN (Urea Nitrogen) 19 mg/dL (8.4-25.7); Calc. Creatinine Clearance 37 mL/min (70-130); Calcium 8.2 mg/dL (7.8-10.44); Carbon Dioxide 21 mmol/L (23-31); Chloride 107 mmol/L (98-107); Estimated GFR 46; Glucose 91 mg/dL (83-110); Potassium 3.6 mmol/L (3.5-5.1); Sodium 137 mmol/L (136-145)
[2022-01-05 08:52] LABS: SARS-CoV-2 NAA Rapid Test Not Detected (NotDetected)
[2022-01-05] MEDS ORDERED: Heparin 5,000 UNITS/ML VIAL SC SCH (09:00)
[2022-01-05 11:36] LABS: Band 1 % (5-11); Eosinophils 3 % (0-10); Lymphocytes 38 % (21-51); MDiff Complete? YES; Monocytes 17 % (0-10); Neutrophil 40 % (42-75); Platelet Morphology Comment Appears Adequate; RBC Morphology Normal
[2022-01-05 12:07] VITALS: BP 175/78; TEMP 98
== END 2022-01-05 12:08 | disposition home or self-care (01) ==
LOC: ERS 19:22 → INTOOBSV 01-05 01:16 → SURG B 01-05 01:16
PROVIDERS: ADMIT Internal Medicine; ATTEND Internal Medicine
DX: N30.00 Acute cystitis without hematuria (principal); L29.8 Other pruritus; N17.9 Acute kidney failure, unspecified; N48.1 Balanitis; I25.10 Atherosclerotic heart disease of native coronary artery without angina pectoris; Z20.822 Contact with and (suspected) exposure to COVID-19; I10 Essential (primary) hypertension; E78.5 Hyperlipidemia, unspecified; G40.909 Epilepsy, unspecified, not intractable, without status epilepticus; Z79.899 Other long term (current) drug therapy; Z79.82 Long term (current) use of aspirin; Z95.1 Presence of aortocoronary bypass graft; Z95.0 Presence of cardiac pacemaker
CPT/HCPCS: 80048; 80053; 85025 ×2; 87086; G0378; U0002; 36415; 81003; 81015; J0696; J1644; J7050